=== PATIENT | female | born 1940 | race African-American/Black ===

== ENCOUNTER 2018-10-14 18:45 | Observation (INO) ==
--- NOTE | 2018-10-14 19:18 | Emergency Department Note ---
Disposition Clinical Impression: Chest pain Qualifiers: Chest pain type: unspecified Qualified Code(s): R07.9 - Chest pain, unspecified Dyspnea Qualifiers: Dyspnea type: unspecified Qualified Code(s): R06.00 - Dyspnea, unspecified CKD (chronic kidney disease) Qualifiers: Chronic kidney disease stage: stage 3 (moderate) Qualified Code(s): N18.3 - Chronic kidney disease, stage 3 (moderate) Disposition: Admitted As Inpatient Condition: Good Referrals: NONE,PCP [Primary Care Provider] - Forms: ED Satisfaction Letter Time of Disposition: 23:02 General Adult HPI - General Chief complaint: ED Shortness of Breath/Dyspnea Stated complaint: Shortness of breath Time Seen by Provider: 10/14/18 19:01 Source: patient, family Mode of arrival: ambulatory Limitations: no limitations Nursing Notes Reviewed: Yes Vital Signs Reviewed: Yes - History of Present Illness HPI Narrative: Patient is a 78-year-old female that presents emergency Department with chief complaint of shortness of breath and chest pressure. Patient states that this happened while she was sitting on the couch at home. Patient states that the chest pressure does radiate up into her right neck and into her ear. Patient states that she has had this one other time in the past. Patient states that she does have a history of esophageal cancer and a right lower lobe lobectomy. Patient states that she usually does not have any issues with breathing and when she became short of breath this evening her son said that she needed to come in to be evaluated. Patient states that her symptoms have completely resolved. Patient states that she has never had any issues with her heart but has had catheterizations and stress test that have been negative. Patient denies any nausea or diaphoresis. Pain Scale: 0 - Related Data Home Medications Medication Instructions Recorded Confirmed Gabapentin [Gralise] 900 mg PO DAILY 08/10/17 08/19/17 Lisinopril [Zestril] 5 mg PO DAILY 08/10/17 08/19/17 Pantoprazole Sodium [Protonix] 40 mg PO DAILY 08/10/17 08/19/17 Tramadol HCl [Ultram] 50 mg PO BID 08/10/17 08/19/17 Venlafaxine [Effexor] 50 mg PO BID 08/10/17 08/19/17 Cholecalciferol (Vitamin D3) 2,000 unit PO DAILY 08/12/17 08/19/17 [Vitamin D] Rosuvastatin Calcium 40 mg PO DAILY 08/12/17 08/19/17 Triamterene/HCTZ 37.5/25mg 1 tab PO DAILY 08/12/17 08/19/17 [Dyazide] raNITIdine HCl [Ranitidine HCl] 150 mg PO BID PRN 08/12/17 08/19/17 Allergies Allergy/AdvReac Type Severity Reaction Status Date / Time No Known Allergies Allergy Verified 08/19/17 08:55 All systems ED: reviewed and negative except as stated. Constitutional: Denies: fever Cardiovascular: Reports: chest pain Respiratory: Reports: dyspnea Gastrointestinal: Denies: abdominal pain, nausea, vomiting Past Medical History - Past Medical History Medical history: Reports: cancer, diabetes, hyperlipidemia, hypertension Surgical history: Reports: hysterectomy Psychiatric history: Reports: no psych history - Social History Smoking Status: Former smoker Smokeless Tobacco Status: No Alcohol use: Reports: none Drug use: Reports: none Physical Exam - General Limitations: no limitations General appearance: alert, in no apparent distress - Head Head exam: atraumatic, normocephalic - Eye Eye exam: Present: normal appearance, EOMI - Neck Neck exam: Present: normal inspection, full ROM, trachea midline - Respiratory Respiratory exam: Present: normal lung sounds bilaterally. Absent: respiratory distress, wheezes - Cardiovascular Cardiovascular exam: Present: regular rate, normal rhythm, normal heart sounds, +S1, +S2 - Abdominal Exam Abdominal exam: Present: soft, Non-Tender, normal bowel sounds - Neurological Exam Neurological exam: Present: alert, oriented X3 - Psychiatric Psychiatric exam: Present: normal affect, normal mood - Skin Skin exam: Present: warm, dry, intact Course Vital Signs Temperature 98.1 F 10/14/18 18:48 Pulse Rate 96 10/14/18 18:48 Respiratory Rate 22 10/14/18 18:48 Blood Pressure 175/85 10/14/18 18:48 O2 Sat by Pulse Oximetry 97 10/14/18 18:48 Temperature 98.1 F 10/14/18 19:10 Pulse Rate 82 10/14/18 22:26 Respiratory Rate 14 10/14/18 22:26 Blood Pressure 142/89 10/14/18 22:26 O2 Sat by Pulse Oximetry 100 10/14/18 22:26 Oxygen Delivery Oxygen Delivery Room Air Medical Decision Making - MDM Narrative Medical decision making narrative: Due the patient presents emergency Department with reports of shortness of breath and chest discomfort we will obtain basic laboratory tests including CBC, BP controlled chest x-ray and EKG as well as a d-dimer to evaluate for possible operative. Patient did have an elevated d-dimer so a CTA of the chest was performed. There is no evidence of PE on exam. There is no evidence of pneumonia on the CT scan. However the chest x-ray did show streaky atelectasis versus pneumonia. The patient has not been febrile, does not have a cough is not tachycardic and has been satting between 97 and 100% here in the emergency department. I feel that the patient is less likely to have pneumonia. However due to the patient having chest pressure located in the center of her chest is radiating up into her neck and feel it is important for the patient be admitted to the hospital for further evaluation and management and trending of her cardi ac enzymes. This is acute onset of her chest pain and is concerning for possible troponin that has not elevated yet. Patient does have a elevated creatinine of 1.27 with a GFR 49. This appears to be at her baseline. Patient was given a liter of IV fluids upon CTA of the chest. Patient is in agreement with being admitted to the hospital. I called and spoke the admitting hospitalist Dr. Rivero and he is except the patient to the service. Patient be admitted to the hospital at this time for further evaluation and management. - Medical Records Medical records reviewed: Yes I reviewed the patient's medical records. - Lab Data Lab results reviewed: Yes I reviewed the patient's lab results. Result diagrams: 10/14/18 19:38 10/14/18 19:38 Lab Results 10/14/18 10/14/18 10/14/18 Range/Units 19:38 19:38 19:38 WBC 6.3 (4.3-11.1) K/mcL RBC 4.12 (3.82-4.97) M/mcL Hgb 11.7 (11.5-15.4) g/dL Hct 36.8 (35.3-44.9) % MCV 89.3 (83.0-100.0) fL MCH 28.4 (28.0-33.3) pg MCHC 31.8 (31.6-35.5) g/dL RDW 14.7 H (11.5-14.5) % Plt Count 252 (140-400) K/mcL MPV 9.1 L (9.4-12.4) fL Immature Gran % 0.2 (0-4) % Seg Neutrophils % 60.8 % Lymphocytes % 30.3 % Monocytes % 7.4 % Eosinophils % 1.1 % Basophils % 0.2 % Neutrophils # 3.9 (1.6-8.9) K/mcL Lymphocytes # 1.9 (0.6-4.6) K/mcL Monocytes # 0.5 (0.0-1.3) K/mcL Eosinophils # 0.1 (0.0-0.6) K/mcL Basophils # 0.0 (0.0-0.2) K/mcL PT 11.6 (9.4-12.1) Seconds INR 1.0 D-Dimer 976 H (0-500) ng/mLFEU Sodium 139 (136-145) mEq/L Potassium 4.7 (3.5-5.1) mEq/L Chloride 108 H (98-107) mEq/L Carbon Dioxide 24 (23-29) mEq/L BUN 24 H (8-23) mg/dL Creatinine 1.27 H (0.60-1.20) mg/dL Est GFR ( Amer) 49 L (> 60) Est GFR (Non-Af Amer) 41 L (> 60) BUN/Creatinine Ratio 19 (6-26) Glucose 103 (70-105) mg/dL Calculated Osmolality 292 (280-300) Lactic Acid (0.5-2.2) mmol/L Calcium 9.6 (8.6-10.3) mg/dL Troponin I < 0.03 (< 0.04) ng/mL B-Natriuretic Peptide (Less than 100) pg/mL 10/14/18 10/14/18 Range/Units 19:38 19:38 WBC (4.3-11.1) K/mcL RBC (3.82-4.97) M/mcL Hgb (11.5-15.4) g/dL Hct (35.3-44.9) % MCV (83.0-100.0) fL MCH (28.0-33.3) pg MCHC (31.6-35.5) g/dL RDW (11.5-14.5) % Plt Count (140-400) K/mcL MPV (9.4-12.4) fL Immature Gran % (0-4) % Seg Neutrophils % % Lymphocytes % % Monocytes % % Eosinophils % % Basophils % % Neutrophils # (1.6-8.9) K/mcL Lymphocytes # (0.6-4.6) K/mcL Monocytes # (0.0-1.3) K/mcL Eosinophils # (0.0-0.6) K/mcL Basophils # (0.0-0.2) K/mcL PT (9.4-12.1) Seconds INR D-Dimer (0-500) ng/mLFEU Sodium (136-145) mEq/L Potassium (3.5-5.1) mEq/L Chloride (98-107) mEq/L Carbon Dioxide (23-29) mEq/L BUN (8-23) mg/dL Creatinine (0.60-1.20) mg/dL Est GFR ( Amer) (> 60) Est GFR (Non-Af Amer) (> 60) BUN/Creatinine Ratio (6-26) Glucose (70-105) mg/dL Calculated Osmolality (280-300) Lactic Acid 0.6 (0.5-2.2) mmol/L Calcium (8.6-10.3) mg/dL Troponin I (< 0.04) ng/mL B-Natriuretic Peptide 48 (Less than 100) pg/mL - Radiology Data Radiology results reviewed: Yes I reviewed the patient's radiology results. Chest X-Ray 10/14/18 19:14 IMPRESSION: Streaky bibasilar opacities, atelectasis versus pneumonia. Elevation of the right hemidiaphragm, new from the prior examination. Correlate with surgical history. D/ / Richmond Kyle MD / Richmond Kyle MD Interpreting Provider: Richmond Kyle MD Chest CTA 10/14/18 20:26 IMPRESSION: No evidence of pulmonary embolism or acute pulmonary abnormality. Small hiatal hernia. D/ / Pinky Glover Cha, MD / Pinky Glover Cha, MD Interpreting Provider: Pinky Glover Cha, MD - EKG Data EKG #1 EKG attestation: Yes I reviewed and interpreted this EKG. EKG results narrative: EKG shows sinus rhythm at a rate of 70 beats from it, MI interval 156, QRS duration of 82, QTC of 418. There is no evidence of STEMI and EKG. This was compared to previous EKG on 01/01/16. Attestation Statement - Attestation Attestation: I, Tom Mcgill DO, examined this patient [id number] and my medical decision-making was reviewed with Dr. Anuel Barton, Resident Physician. I agree with the documented findings, disposition and treatment plan as described except to the extent set forth below. Please see my progress notes for details.
[2018-10-14 19:54] LABS: Basophils % 0.2 %; Eosinophils # 0.1 K/mcL (0.0-0.6); Eosinophils % 1.1 %; Hematocrit 36.8 % (35.3-44.9); Hemoglobin 11.7 g/dL (11.5-15.4); Immature Granulocytes % 0.2 % (0-4); Lymphocytes # 1.9 K/mcL (0.6-4.6); Lymphocytes % 30.3 %; Mean Corpuscular HGB Conc 31.8 g/dL (31.6-35.5); Mean Corpuscular Hemoglobin 28.4 pg (28.0-33.3); Mean Corpuscular Volume 89.3 fL (83.0-100.0); Mean Platelet Volume 9.1 fL (9.4-12.4); Monocytes # 0.5 K/mcL (0.0-1.3); Monocytes % 7.4 %; Neutrophils # 3.9 K/mcL (1.6-8.9); Platelet Count 252 K/mcL (140-400); Red Blood Count 4.12 M/mcL (3.82-4.97); Red Cell Distribution Width 14.7 % (11.5-14.5); Segmented Neutrophils % 60.8 %
[2018-10-14 20:00] LABS: Prothrombin Time 11.6 Seconds (9.4-12.1)
[2018-10-14 20:15] LABS: BUN/Creatinine Ratio 19 (6-26); Blood Urea Nitrogen 24 mg/dL (8-23); Calcium 9.6 mg/dL (8.6-10.3); Carbon Dioxide 24 mEq/L (23-29); Chloride 108 mEq/L (98-107); Glucose 103 mg/dL (70-105); Osmolality,Calculated 292 (280-300); Potassium 4.7 mEq/L (3.5-5.1); Sodium 139 mEq/L (136-145); Troponin I < 0.03 ng/mL (< 0.04); eGFR For Non-African Americans 41 (> 60)
[2018-10-14] MEDS ORDERED: 0.9 % Sodium Chloride 1,000 ML IVC ONE (20:26)
[2018-10-14] MEDS ORDERED: Isovue-370 500 ML INFUS..BTL IV ONE (20:26)
--- NOTE | 2018-10-14 20:36 | Emergency Department Note ---
Disposition Clinical Impression: Chest pain Qualifiers: Chest pain type: unspecified Qualified Code(s): R07.9 - Chest pain, unspecified Dyspnea Qualifiers: Dyspnea type: unspecified Qualified Code(s): R06.00 - Dyspnea, unspecified CKD (chronic kidney disease) Qualifiers: Chronic kidney disease stage: stage 3 (moderate) Qualified Code(s): N18.3 - Chronic kidney disease, stage 3 (moderate) Disposition: Admitted As Inpatient Condition: Good Time of Disposition: 15:10 General Adult HPI - General Chief complaint: ED Shortness of Breath/Dyspnea Stated complaint: Shortness of breath Time Seen by Provider: 10/14/18 19:01 Source: patient, family Mode of arrival: ambulatory Limitations: no limitations - History of Present Illness Pain Scale: 0 - Related Data Home Medications Medication Instructions Recorded Confirmed Gabapentin [Gralise] 900 mg PO HS 08/10/17 10/15/18 Pantoprazole Sodium [Protonix] 40 mg PO DAILY 08/10/17 10/15/18 RX: Lisinopril [Zestril] 5 mg PO DAILY 08/10/17 10/15/18 Tramadol HCl [Ultram] 50 mg PO DAILY PRN 08/10/17 10/15/18 Venlafaxine [Effexor] 50 mg PO DAILY 08/10/17 10/15/18 Cholecalciferol (Vitamin D3) 2,000 unit PO DAILY 08/12/17 10/15/18 [Vitamin D] RX: Triamterene/HCTZ 37.5/25mg 1 tab PO DAILY 08/12/17 10/15/18 [Dyazide] Acetaminophen/Diphenhydramine 1 each PO HS 10/15/18 10/15/18 [Percogesic 325-12.5 mg Tablet] Rosuvastatin Calcium 40 mg PO DAILY 10/15/18 10/15/18 Allergies Allergy/AdvReac Type Severity Reaction Status Date / Time No Known Allergies Allergy Verified 10/15/18 10:09 Constitutional: Denies: fever Cardiovascular: Reports: chest pain Respiratory: Reports: dyspnea Gastrointestinal: Denies: abdominal pain, nausea, vomiting Past Medical History - Past Medical History Medical history: Reports: cancer, diabetes, hyperlipidemia, hypertension Surgical history: Reports: hysterectomy Psychiatric history: Reports: no psych history - Social History Smoking Status: Former smoker Smokeless Tobacco Status: No Alcohol use: Reports: none Drug use: Reports: none Physical Exam - General Limitations: no limitations General appearance: alert, in no apparent distress Course Vital Signs Temperature 98.1 F 10/14/18 18:48 Pulse Rate 96 10/14/18 18:48 Respiratory Rate 22 10/14/18 18:48 Blood Pressure 175/85 10/14/18 18:48 O2 Sat by Pulse Oximetry 97 10/14/18 18:48 Temperature 98.6 F 10/15/18 11:57 Pulse Rate 81 10/15/18 11:57 Respiratory Rate 17 10/15/18 11:57 Blood Pressure 132/64 10/15/18 11:57 O2 Sat by Pulse Oximetry 98 10/15/18 11:57 Oxygen Delivery Oxygen Delivery Room Air Medical Decision Making - Lab Data Result diagrams: 10/15/18 07:06 10/15/18 07:06 Lab Results 10/14/18 10/14/18 10/14/18 Range/Units 19:38 19:38 19:38 WBC 6.3 (4.3-11.1) K/mcL RBC 4.12 (3.82-4.97) M/mcL Hgb 11.7 (11.5-15.4) g/dL Hct 36.8 (35.3-44.9) % MCV 89.3 (83.0-100.0) fL MCH 28.4 (28.0-33.3) pg MCHC 31.8 (31.6-35.5) g/dL RDW 14.7 H (11.5-14.5) % Plt Count 252 (140-400) K/mcL MPV 9.1 L (9.4-12.4) fL Immature Gran % 0.2 (0-4) % Seg Neutrophils % 60.8 % Lymphocytes % 30.3 % Monocytes % 7.4 % Eosinophils % 1.1 % Basophils % 0.2 % Neutrophils # 3.9 (1.6-8.9) K/mcL Lymphocytes # 1.9 (0.6-4.6) K/mcL Monocytes # 0.5 (0.0-1.3) K/mcL Eosinophils # 0.1 (0.0-0.6) K/mcL Basophils # 0.0 (0.0-0.2) K/mcL PT 11.6 (9.4-12.1) Seconds INR 1.0 D-Dimer 976 H (0-500) ng/mLFEU Sodium 139 (136-145) mEq/L Potassium 4.7 (3.5-5.1) mEq/L Chloride 108 H (98-107) mEq/L Carbon Dioxide 24 (23-29) mEq/L BUN 24 H (8-23) mg/dL Creatinine 1.27 H (0.60-1.20) mg/dL Est GFR ( Amer) 49 L (> 60) Est GFR (Non-Af Amer) 41 L (> 60) BUN/Creatinine Ratio 19 (6-26) Glucose 103 (70-105) mg/dL Calculated Osmolality 292 (280-300) Lactic Acid (0.5-2.2) mmol/L Calcium 9.6 (8.6-10.3) mg/dL Troponin I < 0.03 (< 0.04) ng/mL B-Natriuretic Peptide (Less than 100) pg/mL 10/14/18 10/14/18 Range/Units 19:38 19:38 WBC (4.3-11.1) K/mcL RBC (3.82-4.97) M/mcL Hgb (11.5-15.4) g/dL Hct (35.3-44.9) % MCV (83.0-100.0) fL MCH (28.0-33.3) pg MCHC (31.6-35.5) g/dL RDW (11.5-14.5) % Plt Count (140-400) K/mcL MPV (9.4-12.4) fL Immature Gran % (0-4) % Seg Neutrophils % % Lymphocytes % % Monocytes % % Eosinophils % % Basophils % % Neutrophils # (1.6-8.9) K/mcL Lymphocytes # (0.6-4.6) K/mcL Monocytes # (0.0-1.3) K/mcL Eosinophils # (0.0-0.6) K/mcL Basophils # (0.0-0.2) K/mcL PT (9.4-12.1) Seconds INR D-Dimer (0-500) ng/mLFEU Sodium (136-145) mEq/L Potassium (3.5-5.1) mEq/L Chloride (98-107) mEq/L Carbon Dioxide (23-29) mEq/L BUN (8-23) mg/dL Creatinine (0.60-1.20) mg/dL Est GFR ( Amer) (> 60) Est GFR (Non-Af Amer) (> 60) BUN/Creatinine Ratio (6-26) Glucose (70-105) mg/dL Calculated Osmolality (280-300) Lactic Acid 0.6 (0.5-2.2) mmol/L Calcium (8.6-10.3) mg/dL Troponin I (< 0.04) ng/mL B-Natriuretic Peptide 48 (Less than 100) pg/mL Attestation Statement - Attestation Attestation: I, Tom Mcgill DO, examined this patient [id number] and my medical decision-making was reviewed with Dr. Anuel Barton, Resident Physician. I agree with the documented findings, disposition and treatment plan as described except to the extent set forth below. Please see my progress notes for details. 78-year-old female presents to the emergency room for evaluation of intermittent shortness of breath. The symptoms come on acutely at random times throughout the day. She has noticed these symptoms worsening over the last several days. She does have a history of esophageal cancer. She is being evaluated in the next day by the oncologist is perform the procedures on her to determine whether or not the cancer is remained dormant. Patient is currently denying chest pain, fevers, chills, nausea vomiting or diarrhea. Denies any headache or vision change. During evaluation in the emergency room she is denying shortness of breath. All the shortness of breath symptoms come on intermittently throughout the day and resolve when she rests or sits still. She does not associate them with exertion. No travel outside the country. No history of blood clots. Patient is otherwise asymptomatic while here in the emergency department. Physical exam is normal. Lungs are clear heart is regular. Abdomen is soft nontender nondistended with no guarding no rigidity and no peritoneal symptoms. No signs of pitting edema swelling or asymmetry to the lower extremities. No visible signs of trauma deformity or injury at this point. Patient will be provided with symptomatic control if need be. Fluids nausea medication will be ordered. CBC chemistry BMP and troponin will be collected. Chest x-ray and d- dimer will also be resulted. Disposition will be determined once the full workup and treatment course have been established. Otherwise the patient is resting comfortably in the bed in no distress at this time. See detailed documentation of the physical exam, medical intervention, medical decision- making and disposition in the resident physician's note. No critical care applied to the patient's treatment course at this time. 2014 D-dimer is elevated. CT angiography is ordered. Patient's GFR corrected for this study is 49 and appropriate. 1 L of fluid will be ordered as well. Otherwise her labs are unremarkable at this time. Chest x-ray is stable. 2214 CT angiography of the chest is unremarkable for acute etiology. No acute signs of pulmonary emboli mediastinal mass or abnormality. Patient is still short of breath but denies any chest pain. She will be admitted for symptomatic control and evaluation of the hypoxemia that she initially had wall ambulating as well as the chest discomfort. Patient is informed this plan is comfortable with the disposition. Hospitalist has been paged at this time. Admission process will be completed
[2018-10-14] MEDS ORDERED: Aspirin 81 MG TAB.CHEW PO STA (23:04)
[2018-10-15] MEDS ORDERED: 0.9 % Sodium Chloride 1,000 ML IVC ONE (01:57)
[2018-10-15] MEDS ORDERED: Naloxone 0.4 MG/ML INJ IVP PRN (06:45)
[2018-10-15 07:23] LABS: Hematocrit 38.1 % (35.3-44.9); Hemoglobin 12.1 g/dL (11.5-15.4); Mean Corpuscular HGB Conc 31.8 g/dL (31.6-35.5); Mean Corpuscular Hemoglobin 28.3 pg (28.0-33.3); Mean Platelet Volume 9.1 fL (9.4-12.4); Platelet Count 253 K/mcL (140-400); Red Blood Count 4.28 M/mcL (3.82-4.97); Red Cell Distribution Width 14.7 % (11.5-14.5)
[2018-10-15 07:40] LABS: Calcium 9.6 mg/dL (8.6-10.3); Potassium 4.2 mEq/L (3.5-5.1)
--- NOTE | 2018-10-15 07:44 | Internal Med History&Physical ---
Date of Encounter: 10/15/18 Time of Encounter: 04:48 Internal Medicine - H&P: HPI Chief complaint: Chest pain Admitted From: Emergency Dept Plans for Post Hospital Care: Home History of present illness: Ms. Schwarz is a 78 year old female Patient presented to the ER with 2 day history of chest pressure. She states sergey t she first noticed it when she was walking in from her detached garage to her house, and she felt short of breath. She denies having symptoms like that previously. At [employer] she had similar symptoms, as well as chest pressure, with radiation to her right ear and neck. Her son convinced her to come to the ER and be evaluated. In the ER CBC and BMP were within normal limits. Troponin was less than 0.03. D- dimer was 976. Lactic acid was 0.6. Chest x-ray showed possible pneumonia, but CTA of the chest was negative. Her chest pain had resolved prior to her arrival to the ER, and she did not require nitroglycerin. She did receive a dose of aspirin prior to transfer to the medical floor. Upon my assessment, patient continues to deny pain. She has a significant medical history of esophageal cancer, and had her right lower lobe of her lung removed several decades ago. She denies nausea, vomiting, diarrhea, constipation and abdominal pain. She is a former healthcare worker, and stated that she does not wish to be resuscitated if required, CODE STATUS [id number]. Past Med Surg Social Fam HX - Past Medical History Medical history: cancer, diabetes, hyperlipidemia, hypertension Additional medical history: ra, hiatal hernia, renal insufficiency, esophageal cancer Psychiatric history: anxiety - Past Surgical History Surgical History: hysterectomy Additional surgical history: Right lung lobectomy - Social History Smoking Status: Former smoker Smokeless Tobacco Status: No Alcohol use: none Drug use: none - Family History Mother Living Status: Hx Family Cardiac Disorders: No Hx Family Respiratory Disorders: No Hx Family Cancer: Yes (female organs) Hx Family GI Disorders: No Hx Family Genitourinary Disorders: No Hx Family Endocrine Disorder: No Hx Family Musculoskeletal Disorders: No Hx Family Neuromuscular Disorders: No Hx Family Neurologic Disorders: No Hx Family HEENT Disorders: No Hx Family Autoimmune Disorders: No Hx Family Reproductive Disorders: No Hx Family Psychosocial Disorders: No Hx Family Medical Disorders: No Father Living Status: Cause of : Kidney failure Hx Family Cardiac Disorders: Yes Hx Family Endocrine Disorder: Yes (dm) Internal Medicine - H&P: Meds Gabapentin [Gralise] 900 mg PO DAILY 08/10/17 [History] Lisinopril [Zestril] 5 mg PO DAILY 08/10/17 [History] Pantoprazole Sodium [Protonix] 40 mg PO DAILY 08/10/17 [History] Tramadol HCl [Ultram] 50 mg PO BID 08/10/17 [History] Venlafaxine [Effexor] 50 mg PO BID 08/10/17 [History] Cholecalciferol (Vitamin D3) [Vitamin D] 2,000 unit PO DAILY 08/12/17 [History] Rosuvastatin Calcium 40 mg PO DAILY 08/12/17 [History] Triamterene/HCTZ 37.5/25mg [Dyazide] 1 tab PO DAILY 08/12/17 [History] raNITIdine HCl [Ranitidine HCl] 150 mg PO BID PRN 08/12/17 [History] Allergy/AdvReac Type Severity Reaction Status Date / Time No Known Allergies Allergy Verified 08/19/17 08:55 All Systems PM: A 10-system review of systems was performed and is negative for pertinent findings except as documented above in the HPI. - Constitutional Vitals: Temp Pulse Resp BP Pulse Ox 98.6 F 79 16 146/69 98 10/15/18 07:10 10/15/18 07:10 10/15/18 07:10 10/15/18 07:10 10/15/18 07:10 General appearance: Present: cooperative, A&O X 3, pleasant, no acute distress, answers questions appropriately Exam: As above. - Head Head exam: Present: normal inspection - Eye Eye exam: Present: EOMI, normal appearance - Neck Neck exam general surgery: Absent: tenderness - Respiratory Respiratory exam: Present: CTAB, respiratory distress. Absent: wheezes - Cardiovascular Cardiovascular exam: Present: RRR. Absent: diastolic murmur, systolic murmur - GI/Abdominal GI/Abdominal exam: Present: normal bowel sounds, soft. Absent: tenderness - Extremities Exam Extremities exam: Present: warm, radial pulses palpable and symmetrical. Absent: calf tenderness, pedal edema, tenderness - Neurological Exam Neurological exam: Present: no focal deficits, strengths equal and symetr throughout. Absent: motor sensory deficit, facial droop, speech deficit - Skin Skin exam: Present: dry, normal color, warm Internal Med - H&P Results - Labs CBC & Chem 7: 10/15/18 07:06 10/15/18 07:06 Labs: Short CBC 10/14/18 10/15/18 Range/Units 19:38 07:06 WBC 6.3 8.3 (4.3-11.1) K/mcL Hgb 11.7 12.1 (11.5-15.4) g/dL Hct 36.8 38.1 (35.3-44.9) % Plt Count 252 253 (140-400) K/mcL Neutrophils # 3.9 (1.6-8.9) K/mcL BMP 10/14/18 10/15/18 19:38 07:06 Sodium 139 138 Potassium 4.7 4.2 Chloride 108 H 108 H Carbon Dioxide 24 20 L BUN 24 H 17 Creatinine 1.27 H 1.09 Glucose 103 144 H Calcium 9.6 9.6 Cardiac Enzymes 10/14/18 10/15/18 10/15/18 Range/Units 19:38 02:37 07:06 Troponin I < 0.03 < 0.03 < 0.03 (< 0.04) ng/mL - Impressions ITS Impressions Chest X-Ray 10/14/18 19:14 IMPRESSION: Streaky bibasilar opacities, atelectasis versus pneumonia. Elevation of the right hemidiaphragm, new from the prior examination. Correlate with surgical history. D/ / Richmond Kyle MD / Richmond Kyle MD Interpreting Provider: Richmond Kyle MD Chest CTA 10/14/18 20:26 IMPRESSION: No evidence of pulmonary embolism or acute pulmonary abnormality. Small hiatal hernia. D/ / Pinky Glover Cha, MD / Pinky Glover Cha, MD Interpreting Provider: Pinky Glover Cha, MD - Assessment and plan (1) Chest pain Current Visit: Yes Status: Acute Assessment and plan: Now resolved. Troponin negative, EKG no change from previous. Continue to trend troponin production assistant Echocardiogram in the AM. Qualifiers: Chest pain type: unspecified Qualified Code(s): R07.9 - Chest pain, unspecified (2) CKD (chronic kidney disease) Current Visit: Yes Status: Acute Assessment and plan: CKD stage III, creatinine and GFR near baseline. Received 1 liter bolus in the ER, and continued on 125ml/hr normal saline. Recheck labs in the morning Continue IV fluids. Qualifiers: Chronic kidney disease stage: stage 3 (moderate) Qualified Code(s): N18.3 - Chronic kidney disease, stage 3 (moderate) (3) Esophageal cancer Current Visit: No Status: Acute Assessment and plan: Management from outpatient oncology Qualifiers: Malignant neoplasm of esophagus location: unspecified location Qualified Code(s): C15.9 - Malignant neoplasm of esophagus, unspecified (4) DVT prophylaxis Current Visit: Yes Status: Acute Assessment and plan: Heparin Subcutaneously - Time Spent With Patient Total time spent is greater than 50% in coordination of care (as documented) at patient's floor/unit and/or counseling patient: Greater than 35 minutes
[2018-10-15] MEDS ORDERED: Ondansetron 4 MG/2 ML VIAL IVP PRN (09:26)
[2018-10-15] MEDS ORDERED: traMADol 50 MG TABLET PO PRN (13:29)
--- NOTE | 2018-10-15 13:55 | Internal Med Progress Note ---
Hospitalist Progress Note - Encounter Date of Encounter: 10/15/18 Time of Encounter: 13:51 - Subjective Interval History: Admitted with concerns of a 2 day history of chest pressure and shortness of breath worse with exertion. Currently she is resting in bed and is short of breath and was complaining of continuous midsternal chest pressure with radiatio n between her scapula. The shortness of breath and pressure does increase with activity and does improve with rest. She is denying any nausea or diaphoresis or dizziness but does report that she feels extremely fatigued. - Exam Vitals: Temp Pulse Resp BP Pulse Ox 98.6 F 81 17 132/64 98 10/15/18 11:57 10/15/18 11:57 10/15/18 11:57 10/15/18 11:57 10/15/18 11:57 Exam: PHYSICAL EXAMINATION: GENERAL: The patient is an elderly obese female who is in mild distress with some shortness of breath, and O 3 HEENT: Head is normocephalic and atraumatic. Extraocular muscles are intact. Pupils are equal, round, and reactive to light and accommodation. NECK: Supple. No carotid bruits. No lymphadenopathy or thyromegaly. LUNGS: Clear/diminished to auscultation B/L AP and L. HEART: Tachycardic rate and regular rhythm, S1, S2 without murmurs, rubs or gallops. ABDOMEN: Soft, nontender, and nondistended. Positive bowel sounds. No hepatosplenomegaly was noted. EXTREMITIES: Without any cyanosis, clubbing, rash, lesions or edema. NEUROLOGIC: Cranial nerves II through XII are grossly intact. PSYCHIATRIC: Appropriate affect, denies SI/HI, without agitation or anxiety SKIN: No ulceration or induration present. - Assessment and Plan (1) Chest pain Current Visit: Yes Status: Acute Assessment and Plan: Presents with retrosternal chest pain with radiation between bilateral scapula with associated symptoms of shortness of breath Symptoms are worsened with exertion and slowly resolved with rest There is no chest wall tenderness to palpation and pain is not worsened with inspiration, she is without GI complaints or discomfort to exam EKG without ST-T wave changes concerning for ischemia and serial troponins negative 3 Echocardiogram pending Per my assessment this afternoon she does continue to have persistent chest pain she describes as dull/pressure rated 3/10 No prior history of coronary artery disease However she does have risk factors including obesity, sedentary lifestyle, DM, HLD, HTN I will obtain a nuclear stress test for further evaluation Remain on telemetry for close monitoring 81 mg aspirin daily Obtain fasting lipid panel Continue twice a day heparin for DVT prophylaxis Cardiac/diabetic diet now Nothing by mouth after midnight on Wednesday (2) CKD (chronic kidney disease) Current Visit: Yes Status: Acute Assessment and Plan: CKD 3 Renal function at baseline Continue to monitor (3) Dyspnea Current Visit: Yes Status: Acute (4) Esophageal cancer Current Visit: No Status: Acute (5) DVT prophylaxis Current Visit: Yes Status: Acute Assessment and Plan: SC heparin - Time Spent with Patient Total time spent is greater than 50% in coordination of care (as documented) at patient's floor/unit and/or counseling patient: less than 15 minutes Plan of Care Discussed with: patient Internal Medicine: Result - Labs CBC & Chem 7: 10/15/18 07:06 10/15/18 07:06 Labs: Short CBC 10/14/18 10/15/18 Range/Units 19:38 07:06 WBC 6.3 8.3 (4.3-11.1) K/mcL Hgb 11.7 12.1 (11.5-15.4) g/dL Hct 36.8 38.1 (35.3-44.9) % Plt Count 252 253 (140-400) K/mcL Neutrophils # 3.9 (1.6-8.9) K/mcL BMP 10/14/18 10/15/18 19:38 07:06 Sodium 139 138 Potassium 4.7 4.2 Chloride 108 H 108 H Carbon Dioxide 24 20 L BUN 24 H 17 Creatinine 1.27 H 1.09 Glucose 103 144 H Calcium 9.6 9.6 Cardiac Enzymes 10/14/18 10/15/18 10/15/18 Range/Units 19:38 02:37 07:06 Troponin I < 0.03 < 0.03 < 0.03 (< 0.04) ng/mL - ABG Interpretation ABG results: PT/INR, D-dimer PT 11.6 Seconds (9.4-12.1) 10/14/18 19:38 D-Dimer 976 ng/mLFEU (0-500) H 10/14/18 19:38 - Impressions Impressions Chest X-Ray 10/14/18 19:14 IMPRESSION: Streaky bibasilar opacities, atelectasis versus pneumonia. Elevation of the right hemidiaphragm, new from the prior examination. Correlate with surgical history. D/ / Richmond Kyle MD / Richmond Kyle MD Interpreting Provider: Richmond Kyle MD Chest CTA 10/14/18 20:26 IMPRESSION: No evidence of pulmonary embolism or acute pulmonary abnormality. Small hiatal hernia. D/ / Pinky Glover Cha, MD / Pinky Glover Cha, MD Interpreting Provider: Pinky Glover Cha, MD Consult Discharge Plan - Plan Referrals: NONE,PCP [Primary Care Provider] - (1) Chest pain Qualifiers: Chest pain type: unspecified Qualified Code(s): R07.9 - Chest pain, unspecified (2) CKD (chronic kidney disease) Qualifiers: Chronic kidney disease stage: stage 3 (moderate) Qualified Code(s): N18.3 - Chronic kidney disease, stage 3 (moderate) (3) Dyspnea Qualifiers: Dyspnea type: unspecified Qualified Code(s): R06.00 - Dyspnea, unspecified (4) Esophageal cancer Qualifiers: Malignant neoplasm of esophagus location: unspecified location Qualified Code(s): C15.9 - Malignant neoplasm of esophagus, unspecified
[2018-10-15] MEDS: *HR* Heparin 5,000 UNIT/ML VIAL SQ SCH (18:03)
[2018-10-15] MEDS ORDERED: NON-FORMULARY MEDICATION 1 EACH EACH (Acetaminophen/Diphenhydramine [Percogesic 325-12.5 M PO SCH (21:00)
[2018-10-15] MEDS: Gabapentin 300 MG CAPSULE PO SCH (21:04)
[2018-10-15] MEDS: Acetaminophen 325 MG TABLET PO SCH (21:05)
[2018-10-16] MEDS: *HR* Heparin 5,000 UNIT/ML VIAL SQ SCH ×2 (05:21→18:06)
[2018-10-16 06:04] LABS: Chol/HDL Ratio 2.9 (0-4.9)
[2018-10-16] MEDS: Cholecalciferol (D-3) 1,000 UNIT TABLET PO SCH (07:45)
[2018-10-16] MEDS: Aspirin 81 MG TAB.CHEW PO SCH (07:45)
--- NOTE | 2018-10-16 14:43 | Internal Med Progress Note ---
Hospitalist Progress Note - Encounter Date of Encounter: 10/16/18 Time of Encounter: 14:40 - Subjective Interval History: Admitted with concerns of a 2 day history of chest pressure and shortness of breath worse with exertion. Currently she is resting in bed comfortably without chest pressure or shortness of breath. She does report that she was able to get out of bed this morning shower and walk around without shortness of breath or chest pressure. Given her presentation I discussed the need for further workup including stress test in the morning. The patient still agrees and denies any further questions regarding plan of care at this time. - Exam Vitals: Temp Pulse Resp BP Pulse Ox 98.1 F 76 16 108/62 96 10/16/18 11:39 10/16/18 11:39 10/16/18 11:39 10/16/18 11:39 10/16/18 11:39 Exam: PHYSICAL EXAMINATION: GENERAL: The patient is an elderly obese female, NAD, a and O 3 HEENT: Head is normocephalic and atraumatic. Extraocular muscles are intact. Pupils are equal, round, and reactive to light and accommodation. NECK: Supple. No carotid bruits. No lymphadenopathy or thyromegaly. LUNGS: Clear/diminished to auscultation B/L AP and L. HEART: Tachycardic rate and regular rhythm, S1, S2 without murmurs, rubs or gallops. ABDOMEN: Soft, nontender, and nondistended. Positive bowel sounds. No hepatosplenomegaly was noted. EXTREMITIES: Without any cyanosis, clubbing, rash, lesions or edema. NEUROLOGIC: Cranial nerves II through XII are grossly intact. PSYCHIATRIC: Appropriate affect, denies SI/HI, without agitation or anxiety SKIN: No ulceration or induration present. - Assessment and Plan (1) Chest pain Current Visit: Yes Status: Acute Assessment and Plan: Presents with retrosternal chest pain with radiation between bilateral scapula with associated symptoms of shortness of breath Symptoms are worsened with exertion and slowly resolved with rest There is no chest wall tenderness to palpation and pain is not worsened with inspiration, she is without GI complaints or discomfort to exam EKG without ST-T wave changes concerning for ischemia and serial troponins negative 3 Echocardiogram pending Per my assessment this afternoon she does continue to have persistent chest pain she describes as dull/pressure rated 3/10 No prior history of coronary artery disease However she does have risk factors including obesity, sedentary lifestyle, DM, HLD, HTN I will obtain a nuclear stress test for further evaluation Remain on telemetry for close monitoring 81 mg aspirin daily Obtain fasting lipid panel Continue twice a day heparin for DVT prophylaxis Cardiac/diabetic diet now Nothing by mouth after midnight on Tuesday 10/16--clinically, the patient appears to be resting comfortably without any distress. She is denying any chest pain or shortness of breath today and is able to tolerate activity without such. We will continue to monitor overnight and plan for stress in the morning. (2) CKD (chronic kidney disease) Current Visit: Yes Status: Acute Assessment and Plan: CKD 3 Renal function at baseline Continue to monitor (3) Dyspnea Current Visit: Yes Status: Acute Assessment and Plan: Denies any dyspnea today (4) Esophageal cancer Current Visit: No Status: Acute Assessment and Plan: Follow-up outpatient with oncologist (5) DVT prophylaxis Current Visit: Yes Status: Acute Assessment and Plan: SC heparin - Time Spent with Patient Total time spent is greater than 50% in coordination of care (as documented) at patient's floor/unit and/or counseling patient: less than 15 minutes Plan of Care Discussed with: patient Internal Medicine: Result - Labs CBC & Chem 7: 10/15/18 07:06 10/15/18 07:06 - ABG Interpretation ABG results: PT/INR, D-dimer PT 11.6 Seconds (9.4-12.1) 10/14/18 19:38 D-Dimer 976 ng/mLFEU (0-500) H 10/14/18 19:38 - Impressions Impressions Echocardiogram 10/16/18 07:50 Impressions: LVEF 70%. Normal LV chamber size, wall thickness and systolic function. Mild left ventricular diastolic dysfunction. Normal right ventricular structure and function. Mild tricuspid regurgitation. Unable to estimate RVSP due to lack of IVC visualization. Left Ventricular Wall Motion: Rest Echo Findings All wall segments showed normal motion. Findings: Study Quality * Technically adequate exam. ECG Findings * Normal sinus rhythm. Left Ventricle * LVEF 70%. * Normal LV chamber size, wall thickness and systolic function. * Mild left ventricular diastolic dysfunction. * Definity echo contrast was not used. Right Ventricle * Normal right ventricular structure and function. Left Atrium * Normal left atrial size. Right Atrium * Normal right atrial size. Interatrial Septum * Interatrial septum not well evaluated. Aortic Valve * Mildly calcified aortic valve leaflets. * Trace aortic regurgitation. * No aortic stenosis. Mitral Valve * Normal mitral valve structure and function. * No mitral stenosis. * Trace mitral regurgitation. Tricuspid Valve * Normal tricuspid valve structure. * No tricuspid stenosis. * Mild tricuspid regurgitation. * Unable to estimate RVSP due to lack of IVC visualization. Pulmonic Valve * Pulmonic valve is not well visualized. * No pulmonic stenosis. * No pulmonic regurgitation. Aorta * Normally sized aortic root. Pericardium * The pericardium appears normal. IVC * The IVC is not well evaluated. Consult Discharge Plan - Plan Referrals: NONE,PCP [Primary Care Provider] - (1) Chest pain Qualifiers: Chest pain type: unspecified Qualified Code(s): R07.9 - Chest pain, unspe cified (2) CKD (chronic kidney disease) Qualifiers: Chronic kidney disease stage: stage 3 (moderate) Qualified Code(s): N18.3 - Chronic kidney disease, stage 3 (moderate) (3) Dyspnea Qualifiers: Dyspnea type: unspecified Qualified Code(s): R06.00 - Dyspnea, unspecified (4) Esophageal cancer Qualifiers: Malignant neoplasm of esophagus location: unspecified location Qualified Code(s): C15.9 - Malignant neoplasm of esophagus, unspecified
[2018-10-16] MEDS: Gabapentin 300 MG CAPSULE PO SCH (21:01)
[2018-10-16] MEDS: Acetaminophen 325 MG TABLET PO SCH (21:01)
[2018-10-17] MEDS ORDERED: Regadenoson 0.4 MG/5 ML SYRINGE IVP ONE (05:39)
[2018-10-17] MEDS: *HR* Heparin 5,000 UNIT/ML VIAL SQ SCH ×2 (05:54→16:52)
[2018-10-17] MEDS: Aspirin 81 MG TAB.CHEW PO SCH (09:09)
[2018-10-17] MEDS: Cholecalciferol (D-3) 1,000 UNIT TABLET PO SCH (09:09)
--- NOTE | 2018-10-17 13:35 | Electrocardiograph Report ---
[address] [place], [place] [address] Test Date: 2018-10-14 Pat Name: Kirti Schwarz Department: EXAM7 Room: 3B Gender: F Construction Supervisor: : 1940 Requested By: Anuel Barton Order Number: [id number] Reading MD: Hardeep Cueto Measurements Intervals [place] Rate: 78 P: 68 LA: 156 QRS: 45 QRSD: 82 T: 47 QT: 367 QTc: 418 Interpretive Statements Sinus rhythm Electronically Signed On 10-17-2018 13:33:31 EST by Hardeep Cueto
--- NOTE | 2018-10-17 15:05 | Internal Med Progress Note ---
Hospitalist Progress Note - Encounter Date of Encounter: 10/17/18 Time of Encounter: 15:02 - Subjective Interval History: Admitted with concerns of a 2 day history of chest pressure and shortness of breath worse with exertion. She is no longer short of breath and is chest pain- free. - Exam Vitals: Temp Pulse Resp BP Pulse Ox 98.7 F 80 16 153/72 98 10/17/18 11:49 10/17/18 11:49 10/17/18 11:49 10/17/18 11:49 10/17/18 11:49 Exam: PHYSICAL EXAMINATION: GENERAL: The patient is an elderly obese female, NAD, a and O 3 HEENT: Head is normocephalic and atraumatic. Extraocular muscles are intact. Pupils are equal, round, and reactive to light and accommodation. NECK: Supple. No carotid bruits. No lymphadenopathy or thyromegaly. LUNGS: Clear/diminished to auscultation B/L AP and L. HEART: Regular rate and regular rhythm, S1, S2 without murmurs, rubs or gallops. ABDOMEN: Soft, nontender, and nondistended. Positive bowel sounds. No hepatosplenomegaly was noted. EXTREMITIES: Without any cyanosis, clubbing, rash, lesions or edema. NEUROLOGIC: Cranial nerves II through XII are grossly intact. PSYCHIATRIC: Appropriate affect, denies SI/HI, without agitation or anxiety SKIN: No ulceration or induration present. - Assessment and Plan (1) Chest pain Current Visit: Yes Status: Resolved Assessment and Plan: Presents with retrosternal chest pain with radiation between bilateral scapula with associated symptoms of shortness of breath Symptoms are worsened with exertion and slowly resolved with rest There is no chest wall tenderness to palpation and pain is not worsened with inspiration, she is without GI complaints or discomfort to exam EKG without ST-T wave changes concerning for ischemia and serial troponins negative 3 Echocardiogram-with preserved EF, mild LV DVT, mild TR No prior history of coronary artery disease However she does have risk factors including obesity, sedentary lifestyle, DM, HLD, HTN Remain on telemetry for close monitoring 81 mg aspirin daily fasting lipid panel-negative for HIV Continue twice a day heparin for DVT prophylaxis Cardiac/diabetic diet now Nothing by mouth after midnight 10/16--clinically, the patient appears to be resting comfortably without any distress. She is denying any chest pain or shortness of breath today and is able to tolerate activity without such. We will continue to monitor overnight and plan for stress in the morning. 10/17--she is currently resting complaint and without any distress. She is without shortness of breath and chest pain. She reports that she has been able to ambulate around the room without shortness of breath or chest pain. Will undergo day 2 of stress test tomorrow. (2) CKD (chronic kidney disease) Current Visit: Yes Status: Acute Assessment and Plan: CKD 3 Renal function at baseline Continue to monitor (3) Dyspnea Current Visit: Yes Status: Acute Assessment and Plan: Denies any dyspnea today (4) Esophageal cancer Current Visit: No Status: Acute Assessment and Plan: Follow-up outpatient with oncologist (5) DVT prophylaxis Current Visit: Yes Status: Acute Assessment and Plan: SC heparin - Time Spent with Patient Total time spent is greater than 50% in coordination of care (as documented) at patient's floor/unit and/or counseling patient: less than 15 minutes Plan of Care Discussed with: patient Internal Medicine: Result - Labs CBC & Chem 7: 10/15/18 07:06 10/15/18 07:06 - ABG Interpretation ABG results: PT/INR, D-dimer PT 11.6 Seconds (9.4-12.1) 10/14/18 19:38 D-Dimer 976 ng/mLFEU (0-500) H 10/14/18 19:38 Consult Discharge Plan - Plan Referrals: Bari Gan MD [Partnered Physician] - (Your appointment has been web requested. Our office will call you with an appointment time and date.) NONE,PCP [Primary Care Provider] - (1) Chest pain Qualifiers: Chest pain type: unspecified Qualified Code(s): R07.9 - Chest pain, unspecified (2) CKD (chronic kidney disease) Qualifiers: Chronic kidney disease stage: stage 3 (moderate) Qualified Code(s): N18.3 - Chronic kidney disease, stage 3 (moderate) (3) Dyspnea Qualifiers: Dyspnea type: unspecified Qualified Code(s): R06.00 - Dyspnea, unspecified (4) Esophageal cancer Qualifiers: Malignant neoplasm of esophagus location: unspecified location Qualified Code(s): C15.9 - Malignant neoplasm of esophagus, unspecified
[2018-10-17] MEDS: Gabapentin 300 MG CAPSULE PO SCH (22:54)
[2018-10-17] MEDS: Acetaminophen 325 MG TABLET PO SCH (22:54)
[2018-10-18] MEDS: *HR* Heparin 5,000 UNIT/ML VIAL SQ SCH (05:10)
[2018-10-18 07:41] VITALS: BP 139/72
[2018-10-18] MEDS: Cholecalciferol (D-3) 1,000 UNIT TABLET PO SCH (08:14)
[2018-10-18] MEDS: Aspirin 81 MG TAB.CHEW PO SCH (08:14)
--- NOTE | 2018-10-18 12:11 | Discharge Summary ---
Orders not resulted at time of discharge: Pending orders 10/15/18 14:00 NM nadya perf SPECT multi [NM] Routine Date of Encounter: 10/18/18 Time of Encounter: 12:07 - Discharge Diagnosis (1) Chest pain Priority: Primary Status: Acute Qualifiers: Chest pain type: unspecified Qualified Code(s): R07.9 - Chest pain, unspecified (2) Syncope Priority: Primary Status: Acute Qualifiers: Syncope type: unspecified Qualified Code(s): R55 - Syncope and collapse (3) Hypertensive renal disease with renal failure Priority: Secondary Status: Chronic (4) GERD (gastroesophageal reflux disease) Priority: Secondary Status: Chronic Qualifiers: Esophagitis presence: esophagitis presence not specified Qualified Code(s): K21.9 - Gastro-esophageal reflux disease without esophagitis (5) Hx of esophageal malignancy Priority: Secondary Status: Chronic Hospital course: HOSPITAL COURSE: The patient is a 78-year-old woman. We admitted her to the hospital shortly after she experienced a syncopal episode, when being in [facility]. She had also some atypical chest pain on a few occasions shortly before this admission. The patient was treated for esophageal cancer in the past. We did CT angios, echocardiogram, nuclear medicine stress test and telemetry. All those tests did not reveal any significant abnormalities. We did see this patient having chest pain or presyncopal/syncopal episodes during this short hospitalization. CONDITION AT DISCHARGE: She feels good. Denies chest pain. Denies difficulty breathing, coughing and wheezing. Denies abdominal pain, nausea and vomiting. Skin: Free of rash and discoloration. Respiratory: Normal breath sounds with no crackles and wheezes bilaterally. CV: Heart is regular with no gallop or murmur. GI: Abdomen is flat and soft with no palpable mass or visceromegaly. Neuro exam: There is no focal deficits. Normal speech, swallowing and gait. SEE DISCHARGE ORDERS/MEDICATIONS.. Discharge discussed with: patient, family - Time Spent with Patient Total time spent providing and/or coordinating discharge services: Greater than 30 minutes (40 minutes..) - Discharge Medications Home Medications: Gabapentin [Gralise] 900 mg PO HS 08/10/17 [History] Lisinopril [Zestril] 5 mg PO DAILY 08/10/17 [History] Pantoprazole Sodium [Protonix] 40 mg PO DAILY 08/10/17 [History] Tramadol HCl [Ultram] 50 mg PO DAILY PRN 08/10/17 [History] Venlafaxine [Effexor] 50 mg PO DAILY 08/10/17 [History] Cholecalciferol (Vitamin D3) [Vitamin D3] 2,000 unit PO DAILY 08/12/17 [History] Triamterene/HCTZ 37.5/25mg [Dyazide] 1 tab PO DAILY 08/12/17 [History] Acetaminophen/Diphenhydramine [Percogesic 325-12.5 mg Tablet] 1 each PO HS [History] Rosuvastatin Calcium 40 mg PO DAILY 10/15/18 [History] Allergies/Adverse Reactions: Allergy/AdvReac Type Severity Reaction Status Date / Time No Known Allergies Allergy Verified 10/15/18 10:09 Date of admission: 10/14/18 23:11 Primary care physician: PCP NONE Discharging clinician: Ezekiel Zhong Anticipated date of discharge: 10/18/18 - Constitutional Vitals: Temp Pulse Resp BP Pulse Ox 98.7 F 75 16 139/72 97 10/18/18 07:40 10/18/18 07:40 10/18/18 07:40 10/18/18 07:40 10/18/18 07:40 General appearance: Present: cooperative, A&O X 3, pleasant, no acute distress, answers questions appropriately Exam: xx - Patient Status Disposition: Home, Self-Care Condition: Good Functional capacity at discharge: independent ambulation Overall status at discharge: patient is back to baseline - Discharge Instructions Instructions: Chest Pain (DC) Follow Up With: Bari Gan MD [Partnered Physician] - (Your appointment has been web requ ested. Our office will call you with an appointment time and date.) Additional Instructions: THE PATIENT IS TO REPORT TO HER PCP ANY EPISODES OF DIZZINESS/LIGHTHEADEDNESS/PASSING OUT/NEARLY PASSING OUT.. - Diet and Activity Activity: resume usual activities as tolerated Diet: low fat, low cholesterol - VTE Deep Vein Thrombosis/Pulmonary Embolism Present on Admission: No
== END 2018-10-18 14:43 | disposition home or self-care (01) ==
LOC: 3BNU 18:45 → EMEROOARM 18:45 → SUATTDRO 23:11 → 3BNU 23:54
PROVIDERS: ADMIT Family Medicine; ATTEND Internal Medicine

== ENCOUNTER 2020-03-31 15:05 | Observation (INO) ==
[2020-03-31 15:43] LABS: Basophils % 0.3 %; Eosinophils # 0.1 K/mcL (0.0-0.6); Eosinophils % 0.9 %; Hematocrit 39.3 % (35.3-44.9); Hemoglobin 12.2 g/dL (11.5-15.4); Immature Granulocytes % 0.5 % (0-4); Lymphocytes # 1.8 K/mcL (0.6-4.6); Lymphocytes % 28.1 %; Mean Corpuscular Hemoglobin 29.1 pg (28.0-33.3); Mean Corpuscular Volume 93.8 fL (83.0-100.0); Mean Platelet Volume 9.4 fL (9.4-12.4); Monocytes # 0.4 K/mcL (0.0-1.3); Monocytes % 5.9 %; Neutrophils # 4.2 K/mcL (1.6-8.9); Platelet Count 238 K/mcL (140-400); Red Blood Count 4.19 M/mcL (3.82-4.97); Red Cell Distribution Width 14.6 % (11.5-14.5); Segmented Neutrophils % 64.3 %; White Blood Count 6.5 K/mcL (4.3-11.1)
[2020-03-31] MEDS ORDERED: Aspirin 325 MG TABLET PO ONE (15:43)
[2020-03-31 16:00] LABS: BUN/Creatinine Ratio 19 (6-26); Blood Urea Nitrogen 29 mg/dL (8-23); Calcium 9.9 mg/dL (8.6-10.3); Carbon Dioxide 22 mEq/L (23-29); Chloride 105 mEq/L (98-107); Glucose 131 mg/dL (70-105); Osmolality,Calculated 288 (280-300); Potassium 5.5 mEq/L (3.5-5.1); Sodium 135 mEq/L (136-145); eGFR For African Americans 39 (> 60); eGFR For Non-African Americans 32 (> 60)
[2020-03-31 16:01] LABS: Troponin I < 0.03 ng/mL (< 0.04)
[2020-03-31] MEDS ORDERED: 0.9 % Sodium Chloride 500 ML IVC ONE (16:04)
[2020-03-31] MEDS ORDERED: Isovue-370 500 ML BOTTLE IVP ONE ×2 (16:50→17:25)
[2020-03-31] MEDS ORDERED: Ondansetron 4 MG/2 ML VIAL IVP PRN (17:04)
[2020-03-31] MEDS ORDERED: Naloxone 0.4 MG/ML INJ IVP PRN (17:04)
[2020-03-31] MEDS ORDERED: Nitroglycerin 0.4 MG TAB.SUBL SL PRN (17:05)
[2020-03-31] MEDS ORDERED: Morphine Sulfate 2 MG/ML SYRINGE IVP PRN (17:27)
[2020-03-31] MEDS ORDERED: *HR* Heparin 5,000 UNIT/ML VIAL IVP PRN ×2 (18:10)
[2020-03-31] MEDS ORDERED: *HR* Heparin 5,000 UNIT/ML VIAL IVP ONE (18:10)
[2020-03-31] MEDS ORDERED: Heparin 25,000 UNIT/250 ML D5W 25,000 UNIT/250 ML IV.SOLN IVC SCH (18:30)
[2020-03-31] MEDS: 0.9 % Sodium Chloride 1,000 ML IVC SCH (18:42)
[2020-03-31 19:11] LABS: INR 0.9; Prothrombin Time 10.3 Seconds (9.4-12.1)
[2020-03-31 19:15] LABS: Heparin anti-factor XA UFH < 0.04 IU/mL (0.30-0.70)
[2020-03-31] MEDS: Gabapentin 300 MG CAPSULE PO SCH (22:32)
[2020-04-01 01:04] LABS: Basophils % 0.5 %; Eosinophils # 0.1 K/mcL (0.0-0.6); Hematocrit 35.3 % (35.3-44.9); Hemoglobin 11.1 g/dL (11.5-15.4); Immature Granulocytes % 0.2 % (0-4); Lymphocytes # 2.1 K/mcL (0.6-4.6); Lymphocytes % 32.3 %; Mean Corpuscular HGB Conc 31.4 g/dL (31.6-35.5); Mean Corpuscular Hemoglobin 29.6 pg (28.0-33.3); Mean Corpuscular Volume 94.1 fL (83.0-100.0); Mean Platelet Volume 9.1 fL (9.4-12.4); Monocytes # 0.5 K/mcL (0.0-1.3); Monocytes % 7.7 %; Neutrophils # 3.7 K/mcL (1.6-8.9); Platelet Count 207 K/mcL (140-400); Red Blood Count 3.75 M/mcL (3.82-4.97); Red Cell Distribution Width 14.6 % (11.5-14.5); Segmented Neutrophils % 57.3 %; White Blood Count 6.5 K/mcL (4.3-11.1)
[2020-04-01 01:24] LABS: Calcium 9.1 mg/dL (8.6-10.3); Potassium 4.7 mEq/L (3.5-5.1)
[2020-04-01] MEDS: Cholecalciferol (D-3) 1,000 UNIT (25MCG) TABLET PO SCH (07:44)
[2020-04-01] MEDS: *HR* Rivaroxaban 15 MG TABLET PO SCH ×2 (11:38→19:53)
[2020-04-01] MEDS: 0.9 % Sodium Chloride 1,000 ML IVC SCH (13:48)
[2020-04-01] MEDS: Gabapentin 300 MG CAPSULE PO SCH (19:52)
[2020-04-02] MEDS: *HR* Rivaroxaban 15 MG TABLET PO SCH (08:02)
[2020-04-02] MEDS: Cholecalciferol (D-3) 1,000 UNIT (25MCG) TABLET PO SCH (08:02)
[2020-04-02 15:50] VITALS: BP 147/79
[2020-04-02] MEDS ORDERED: *HR* Enoxaparin 100 MG/ML SYRINGE SQ SCH (18:00)
== END 2020-04-02 18:30 | disposition home or self-care (01) ==
LOC: EMEROOARM 15:05 → 3ANU 15:05 → SUATTDRO 17:16 → 3ANU 18:24
PROVIDERS: ADMIT Internal Medicine; ATTEND Internal Medicine

== ENCOUNTER 2021-02-01 20:37 | Inpatient (IN) ==
[2021-02-01] MEDS ORDERED: Isovue-370 500 ML BOTTLE IVP ONE (20:57)
[2021-02-01] MEDS ORDERED: Ondansetron 4 MG/2 ML VIAL IVP ONE (21:12)
[2021-02-01] MEDS ORDERED: *HR* FentaNYL (PF) 100 MCG/2 ML VIAL IVP ONE (21:12)
[2021-02-01 21:21] LABS: Basophils % 0.1 %; Hematocrit 36.6 % (35.3-44.9); Hemoglobin 11.4 g/dL (11.5-15.4); Immature Granulocytes % 0.5 % (0-4); Lymphocytes # 1.7 K/mcL (0.6-4.6); Lymphocytes % 11.8 %; Mean Corpuscular HGB Conc 31.1 g/dL (31.6-35.5); Mean Corpuscular Hemoglobin 26.5 pg (28.0-33.3); Mean Corpuscular Volume 84.9 fL (83.0-100.0); Mean Platelet Volume 9.3 fL (9.4-12.4); Monocytes # 1.7 K/mcL (0.0-1.3); Monocytes % 11.6 %; Neutrophils # 10.8 K/mcL (1.6-8.9); Platelet Count 395 K/mcL (140-400); Red Blood Count 4.31 M/mcL (3.82-4.97); Red Cell Distribution Width 15.7 % (11.5-14.5); White Blood Count 14.3 K/mcL (4.3-11.1)
[2021-02-01 21:38] LABS: Alanine Aminotransferase 46 Units/L (7-52); Albumin 3.8 g/dL (3.5-5.7); Alkaline Phosphatase 725 Units/L (34-104); Aspartate Amino Transferase 93 Units/L (13-39); BUN/Creatinine Ratio 18 (6-26); Bilirubin,Direct 0.4 mg/dL (0.0-0.2); Bilirubin,Indirect 0.5 mg/dL (0.0-1.0); Bilirubin,Total 0.9 mg/dL (0.3-1.0); Blood Urea Nitrogen 36 mg/dL (8-23); Calcium 9.6 mg/dL (8.6-10.3); Carbon Dioxide 21 mEq/L (23-29); Chloride 98 mEq/L (98-107); Globulin 3.8 g/dL (2.4-3.5); Glucose 144 mg/dL (70-105); Lipase 70 Units/L (11-82); Osmolality,Calculated 285 (280-300); Sodium 132 mEq/L (136-145); Total Protein 7.6 g/dL (6.4-8.9); Troponin I < 0.03 ng/mL (< 0.04); eGFR For African Americans 30 (> 60); eGFR For Non-African Americans 25 (> 60)
[2021-02-01] MEDS ORDERED: 0.9 % Sodium Chloride 1,000 ML IVC ONE (22:26)
[2021-02-01] MEDS ORDERED: Morphine Sulfate 2 MG/ML SYRINGE IVP ONE (22:41)
[2021-02-02] MEDS ORDERED: Naloxone 0.4 MG/ML INJ IVP PRN (01:00)
[2021-02-02] MEDS ORDERED: Ondansetron 4 MG/2 ML VIAL IVP PRN (01:00)
[2021-02-02] MEDS: Melatonin 3 MG TABLET PO PRN (03:43)
[2021-02-02 07:33] LABS: Basophils % 0.2 %; Eosinophils % 0.2 %; Hematocrit 34.6 % (35.3-44.9); Hemoglobin 10.5 g/dL (11.5-15.4); Immature Granulocytes % 0.4 % (0-4); Lymphocytes # 1.7 K/mcL (0.6-4.6); Lymphocytes % 13.5 %; Mean Corpuscular HGB Conc 30.3 g/dL (31.6-35.5); Mean Corpuscular Hemoglobin 26.6 pg (28.0-33.3); Mean Corpuscular Volume 87.8 fL (83.0-100.0); Mean Platelet Volume 9.6 fL (9.4-12.4); Monocytes # 1.8 K/mcL (0.0-1.3); Monocytes % 14.4 %; Platelet Count 338 K/mcL (140-400); Red Blood Count 3.94 M/mcL (3.82-4.97); Red Cell Distribution Width 15.9 % (11.5-14.5); Segmented Neutrophils % 71.3 %; White Blood Count 12.6 K/mcL (4.3-11.1)
[2021-02-02 07:53] LABS: INR 1.3; Prothrombin Time 15.2 Seconds (9.4-12.1)
[2021-02-02 07:54] LABS: Alanine Aminotransferase 35 Units/L (7-52); Albumin 3.4 g/dL (3.5-5.7); Alkaline Phosphatase 650 Units/L (34-104); Aspartate Amino Transferase 70 Units/L (13-39); BUN/Creatinine Ratio 17 (6-26); Bilirubin,Total 0.8 mg/dL (0.3-1.0); Blood Urea Nitrogen 38 mg/dL (8-23); Calcium 9.3 mg/dL (8.6-10.3); Carbon Dioxide 22 mEq/L (23-29); Chloride 100 mEq/L (98-107); Globulin 3.4 g/dL (2.4-3.5); Glucose 118 mg/dL (70-105); Magnesium 1.9 mg/dL (1.6-2.6); Osmolality,Calculated 282 (280-300); Phosphorous 4.2 mg/dL (2.7-4.5); Potassium 4.9 mEq/L (3.5-5.1); Sodium 131 mEq/L (136-145); Total Protein 6.8 g/dL (6.4-8.9); Troponin I < 0.03 ng/mL (< 0.04); eGFR For African Americans 26 (> 60); eGFR For Non-African Americans 21 (> 60)
[2021-02-02 08:14] LABS: Bilirubin,Urine Negative (Negative); Blood,Urine Trace (Negative); Clarity,Urine Turbid (Clear); Color,Urine Light-Yellow (Yellow); Glucose,Urine (UA) Normal (Normal); Ketones,Urine Negative (Negative); Leukocyte Esterase,Urine Negative (Negative); Mucus,Urine Few per lpf (None-Few); Nitrite,Urine Negative (Negative); PH,Urine 5.5 pH Units (5.0-8.0); Protein,Urine 70 mg/dL (Neg-Trace); RBC,Urine 0-3 per hpf (0-3); Specific Gravity,Urine 1.013 (1.010-1.025); Squamous Epithelial Cell,Urine Few per hpf (None-Few); Urobilinogen,Urine Normal (Normal); WBC,Urine 0-3 per hpf (0-3)
[2021-02-02] MEDS: 0.9 % Sodium Chloride 1,000 ML IVC SCH ×2 (09:03→22:22)
[2021-02-02] MEDS: *HR* HYDROmorphone (PF) 1 MG/ML SYRINGE IVP PRN ×2 (09:05→16:47)
[2021-02-02] MEDS: Gabapentin 300 MG CAPSULE PO SCH (20:26)
[2021-02-03] MEDS: Melatonin 3 MG TABLET PO PRN ×2 (00:45→21:26)
[2021-02-03] MEDS: *HR* HYDROmorphone (PF) 1 MG/ML SYRINGE IVP PRN ×2 (00:47→21:26)
[2021-02-03 06:07] LABS: Hematocrit 33.6 % (35.3-44.9); Hemoglobin 9.9 g/dL (11.5-15.4); Mean Corpuscular HGB Conc 29.5 g/dL (31.6-35.5); Mean Corpuscular Hemoglobin 25.7 pg (28.0-33.3); Mean Corpuscular Volume 87.3 fL (83.0-100.0); Mean Platelet Volume 9.3 fL (9.4-12.4); Platelet Count 327 K/mcL (140-400); Red Blood Count 3.85 M/mcL (3.82-4.97); Red Cell Distribution Width 15.9 % (11.5-14.5); White Blood Count 12.9 K/mcL (4.3-11.1)
[2021-02-03 06:28] LABS: Albumin 3.4 g/dL (3.5-5.7); Bilirubin,Total 0.7 mg/dL (0.3-1.0); Calcium 9.6 mg/dL (8.6-10.3); Globulin 3.4 g/dL (2.4-3.5); Potassium 4.6 mEq/L (3.5-5.1); Total Protein 6.8 g/dL (6.4-8.9)
[2021-02-03] MEDS: *HR* OxyCODONE Immed Rel 5 MG TABLET PO PRN (10:14)
[2021-02-03] MEDS: Gabapentin 300 MG CAPSULE PO SCH (21:26)
[2021-02-03] MEDS: 0.9 % Sodium Chloride 1,000 ML IVC SCH (21:27)
[2021-02-03 22:21] LABS: Protein/Creatinine Ratio,Urine 1.73 mg/mg (0.00-0.20)
[2021-02-04 06:37] LABS: Hematocrit 31.5 % (35.3-44.9); Hemoglobin 9.3 g/dL (11.5-15.4); Mean Corpuscular HGB Conc 29.5 g/dL (31.6-35.5); Mean Corpuscular Hemoglobin 25.8 pg (28.0-33.3); Mean Corpuscular Volume 87.3 fL (83.0-100.0); Mean Platelet Volume 9.6 fL (9.4-12.4); Platelet Count 332 K/mcL (140-400); Red Blood Count 3.61 M/mcL (3.82-4.97); Red Cell Distribution Width 15.8 % (11.5-14.5); White Blood Count 11.2 K/mcL (4.3-11.1)
[2021-02-04 07:02] LABS: Albumin 3.1 g/dL (3.5-5.7); Albumin/Globulin Ratio 0.9 (1.1-2.2); Bilirubin,Total 0.5 mg/dL (0.3-1.0); Calcium 9.2 mg/dL (8.6-10.3); Globulin 3.3 g/dL (2.4-3.5); Potassium 4.5 mEq/L (3.5-5.1); Total Protein 6.4 g/dL (6.4-8.9)
[2021-02-04 07:03] LABS: Uric Acid 8.4 mg/dL (2.3-7.6)
[2021-02-04 07:27] LABS: Hepatitis B Surface Antigen Nonreactive (Nonreactive)
[2021-02-04 07:55] LABS: Hepatitis C Virus Antibody Nonreactive (Nonreactive)
[2021-02-04 07:56] LABS: Hepatitis B Core IgM Nonreactive (Nonreactive)
[2021-02-04 07:58] LABS: Hepatitis A Antibody IgM Nonreactive (Nonreactive)
[2021-02-04] MEDS: *HR* OxyCODONE Immed Rel 5 MG TABLET PO PRN ×2 (10:27→20:45)
[2021-02-04] MEDS: 0.9 % Sodium Chloride 1,000 ML IVC SCH (11:58)
[2021-02-04] MEDS: *HR* HYDROmorphone (PF) 1 MG/ML SYRINGE IVP PRN ×2 (12:02→22:21)
[2021-02-04] MEDS: polyethylene glycoL 3350 17 GM POWD.PACK PO SCH (19:00)
[2021-02-04] MEDS: Gabapentin 300 MG CAPSULE PO SCH (20:39)
[2021-02-04] MEDS: Melatonin 3 MG TABLET PO PRN (20:45)
[2021-02-05] MEDS: 0.9 % Sodium Chloride 1,000 ML IVC SCH ×3 (00:22→12:55)
[2021-02-05 02:16] LABS: Hematocrit 30.5 % (35.3-44.9); Hemoglobin 9.3 g/dL (11.5-15.4); Mean Corpuscular HGB Conc 30.5 g/dL (31.6-35.5); Mean Corpuscular Hemoglobin 26.7 pg (28.0-33.3); Mean Corpuscular Volume 87.6 fL (83.0-100.0); Mean Platelet Volume 9.5 fL (9.4-12.4); Platelet Count 330 K/mcL (140-400); Red Blood Count 3.48 M/mcL (3.82-4.97); Red Cell Distribution Width 15.8 % (11.5-14.5); White Blood Count 10.4 K/mcL (4.3-11.1)
[2021-02-05 02:36] LABS: Albumin/Globulin Ratio 0.9 (1.1-2.2); Bilirubin,Total 0.5 mg/dL (0.3-1.0); Calcium 8.7 mg/dL (8.6-10.3); Globulin 3.5 g/dL (2.4-3.5); Potassium 4.5 mEq/L (3.5-5.1); Total Protein 6.5 g/dL (6.4-8.9)
[2021-02-05] MEDS: *HR* OxyCODONE Immed Rel 5 MG TABLET PO PRN ×2 (05:37→17:59)
[2021-02-05] MEDS ORDERED: *HR* FentaNYL (PF) 100 MCG/2 ML VIAL IVP ONE (08:26)
[2021-02-05] MEDS ORDERED: *HR* Midazolam HCl 2 MG/2 ML VIAL IVP ONE (08:26)
[2021-02-05] MEDS ORDERED: Lidocaine/EPI 1:100k 1% 50 ML VIAL ONE (09:19)
[2021-02-05] MEDS ORDERED: Heparin 1,000 UNITS/500 mL 500 ML ONE (09:19)
[2021-02-05] MEDS ORDERED: 0.9 % Sodium Chloride 500 ML ONE (09:22)
[2021-02-05] MEDS ORDERED: CeFAZolin 2,000 MG/50 ML BAG IVPB ONE (10:05)
[2021-02-05] MEDS: polyethylene glycoL 3350 17 GM POWD.PACK PO SCH (11:15)
[2021-02-05] MEDS: Melatonin 3 MG TABLET PO PRN (21:55)
[2021-02-05] MEDS: Gabapentin 300 MG CAPSULE PO SCH (21:55)
[2021-02-05] MEDS: *HR* HYDROmorphone (PF) 1 MG/ML SYRINGE IVP PRN (22:00)
[2021-02-06 07:02] LABS: Hemoglobin 9.8 g/dL (11.5-15.4); Mean Corpuscular HGB Conc 30.6 g/dL (31.6-35.5); Mean Corpuscular Hemoglobin 26.3 pg (28.0-33.3); Mean Corpuscular Volume 85.8 fL (83.0-100.0); Mean Platelet Volume 9.1 fL (9.4-12.4); Platelet Count 347 K/mcL (140-400); Red Blood Count 3.73 M/mcL (3.82-4.97); Red Cell Distribution Width 15.7 % (11.5-14.5); White Blood Count 9.5 K/mcL (4.3-11.1)
[2021-02-06 07:14] VITALS: BP 134/82
[2021-02-06 07:20] LABS: Albumin 3.1 g/dL (3.5-5.7); Albumin/Globulin Ratio 0.9 (1.1-2.2); Bilirubin,Total 0.7 mg/dL (0.3-1.0); Calcium 9.2 mg/dL (8.6-10.3); Globulin 3.3 g/dL (2.4-3.5); Potassium 4.5 mEq/L (3.5-5.1); Total Protein 6.4 g/dL (6.4-8.9)
[2021-02-06] MEDS: polyethylene glycoL 3350 17 GM POWD.PACK PO SCH (08:08)
== END 2021-02-06 11:36 | disposition home or self-care (01) | DRG 435 ==
LOC: EMEROOARM 20:37 → 3BNU 20:37 → SUATTDRO 23:22 → 3BNU 23:24 → SUATTDRO 02-03 16:23
PROVIDERS: ADMIT Family Medicine; ATTEND Nurse Practitioner